=== PATIENT | female | born 1945 | race Hispanic/Latino ===

== ENCOUNTER 2016-11-17 12:49 | Emergency (ER) | payer MEDICARE, OTHER ==
[2016-11-17 13:01] VITALS: BP 131/68; PULSE 74; RESP 20; TEMP 97.9; O2SAT 99
[2016-11-17] MEDS ORDERED: Oxycodone/Acetaminophen 5/325 mg Tab ONE (13:11)
[2016-11-17] MEDS ORDERED: Oxycodone/Acetaminophen 5/325 mg Tab PO STA (13:16)
--- NOTE | 2016-11-17 13:19 | ED PDOC ---
Lower Extremity Pain/Injury Time Seen by Provider: 11/17/16 13:04 Chief Complaint (Nursing): Lower Extremity Problem/Injury Chief Complaint (Provider): Left Knee Pain History Per: Patient History/Exam Limitations: no limitations Onset/Duration Of Symptoms: Days (x4) Current Symptoms Are (Timing): Still Present Severity: Moderate Additional Complaint(s): Kathy Whiting is a 71 year old female, with a past medical history inclusive hypercholesterolemia, chronic knee pain and previous b/l knee surgery, who presents to the ED on 11/17/16 for the evaluation of a moderate amount of atraumatic left knee pain that she has experienced x4 days. Pain, reportedly worse with movement and ambulation, is diffusely localized to the anterior/ posterior knee as well as the gold, calf and hamstrings. Denies chest pain, shortness of breath, dizziness/lightheadedness or extremity swelling. No recent travel. Has medicated with Advil every 6 hours without relief. Of note, patient usually takes Tylenol #3 at home for severe pain, but states that she has run out of this prescription. She also reports taking aspirin on a daily basis. PMD: Max Milian Past Medical History Reviewed: Historical Data, Nursing Documentation, Vital Signs Vital Signs: Last Vital Signs Temp 97.9 F 11/17/16 12:57 Pulse 74 11/17/16 12:57 Resp 20 11/17/16 12:57 BP 131/68 11/17/16 12:57 Pulse Ox 99 11/17/16 12:57 - Medical History PMH: Depression, Hypercholesterolemia Denies: Diabetes, HIV, Chronic Kidney Disease Comment Only: HTN (pt denies) - Surgical History Other surgeries: b/l knee surgery - Family History Family History: States: Unknown Family Hx - Living Arrangements Living Arrangements: With Family - Immunization History Hx Tetanus Toxoid Vaccination: No Hx Influenza Vaccination: No Hx Pneumococcal Vaccination: No - Home Medications Home Medications: Ambulatory Orders Medication Instructions Recorded Citalopram Hydrobromide [Celexa] 10 mg PO DAILY 10/09/14 Rosuvastatin Calcium [Crestor] 5 mg PO HS 10/09/14 Zolpidem Tartrate [Ambien] 10 mg PO HS PRN 10/09/14 Ondansetron ODT [Zofran ODT] 4 mg PO Q8 PRN #12 odt 02/23/15 QUEtiapine [SEROquel] 25 mg PO HS 02/23/15 Rivastigmine 9.5 mg/24 hr [Exelon 1 patch TOP QAM 02/23/15 9.5 mg/24 hr Patch] Aspirin [Aspirin Chewable] 81 mg PO DAILY 06/16/16 Glucosamine HCl 500 mg PO DAILY 06/16/16 [place]-3 Fatty Acids [Fish Oil] 300 mg PO DAILY 06/16/16 oxyCODONE/Acetaminophen [Percocet 1 ea PO Q6H PRN #15 tab 11/17/16 5/325 mg Tab] - Allergies Allergies/Adverse Reactions: Allergies Allergy/AdvReac Type Severity Reaction Status Date / Time No Known Allergies Allergy Verified 12/06/15 11:45 Review of Systems Cardiovascular: Negative for: Chest Pain, Edema, Light Headedness Respiratory: Negative for: Shortness of Breath Musculoskeletal: Positive for: Leg Pain (diffuse (anterior/posterior knee, gold , calf, hamstrings)) Neurological: Negative for: Dizziness Physical Exam - Reviewed Nursing Documentation Reviewed: Yes Vital Signs Reviewed: Yes - Physical Exam Appears: Positive for: Non-toxic, No Acute Distress Skin: Positive for: Normal Color, Warm, Dry Cardiovascular/Chest: Positive for: Regular Rate, Rhythm. Negative for: Murmur Respiratory: Positive for: Normal Breath Sounds. Negative for: Respiratory Distress Pulses-Dorsalis Pedis (L): 2+ Extremity: Positive for: Calf Tenderness (left). Negative for: Normal ROM ( decreased ROM of left knee secondary to pain), Tenderness (left knee is nontender to palpation), Deformity, Swelling Neurologic/Psych: Positive for: Alert, Oriented. Negative for: Motor/Sensory Deficits - ECG O2 Sat by Pulse Oximetry: 99 (RA) Pulse Ox Interpretation: Normal Medical Decision Making Medical Decision Makin:04 Initial Impression: left knee/leg/calf pain; will r/o bony abnormality as well as DVT Initial Plan: * Duplex LE Vein, Left * XR Left Knee (3 Views) * Percocet 1 tab PO * Reevaluation Pt reports feeling better on re-evaluation. Discussed (-) DVT and normal knee x- ray. (+) jimenez's cyst. Pt states she will f/u with her orthopedic when he returns from vacation. Scribe Attestation: Documented by Roxann Martin, acting as a scribe for Sherry Gonzalez PA-C. Provider Scribe Attestation: All medical record entries made by the Scribe were at my direction and personally dictated by me. I have reviewed the chart and agree that the record accurately reflects my personal performance of the history, physical exam, medical decision making, and the department course for this patient. I have also personally directed, reviewed, and agree with the discharge instructions and disposition. Disposition - Clinical Impression Clinical Impression: Jimenez's cyst of knee - Patient ED Disposition Is Patient to be Admitted: No Counseled Patient/Family Regarding: Diagnosis, Need For Followup, Rx Given - Disposition Referrals: [facility] [Outside] Disposition: Routine/Home Disposition Time: 15:08 Condition: GOOD Prescriptions: oxyCODONE/Acetaminophen [Percocet 5/325 mg Tab] 1 ea PO Q6H PRN #15 tab PRN Reason: Pain, Severe (8-10) Instructions: Jimenez's Cyst (ED) Print Language: COMORAN
--- NOTE | 2016-11-17 14:06 | US ---
Left lower extremity ultrasound. Indication: Left calf pain Technique: Duplex ultrasound evaluation of the left lower extremity Comparison: None available Findings: There is normal flow, compressibility, and augmentation of the left common femoral, femoral, and popliteal veins. The steer tibial vein appears patent. 2.6 x 1.5 x 2.4 cm rounded anechoic posterior fossa collection compatible with a Jimenez's cyst. Impression: No evidence of deep venous thrombosis in the left lower extremity. 2.6 x 1.5 x 2.4 cm Jimenez's cyst.
--- NOTE | 2016-11-17 14:36 | RAD ---
PROCEDURE: Left Knee Radiographs. HISTORY: Pain. COMPARISON: None. FINDINGS: BONES: There is no acute fracture or bone destruction. Bone mineralization is normal. There is no evidence of loosening or hardware complications. JOINTS: Status post total cemented knee arthroplasty. JOINT EFFUSION: There is a small suprapatellar joint effusion. OTHER FINDINGS: None. IMPRESSION: Status post total cemented knee arthroplasty, no evidence of hardware complications.
== END 2016-11-17 15:17 | disposition home or self-care (01) ==
LOC: H.ER 12:49
DX: M71.20 Synovial cyst of popliteal space [Baker], unspecified knee (principal)

== ENCOUNTER 2018-01-26 13:27 | Emergency (ER) | payer MEDICARE, OTHER ==
[2018-01-26 13:29] VITALS: BP 148/83; PULSE 78; RESP 16; TEMP 98.4; O2SAT 97
[2018-01-26 13:30] VITALS: BMI 26.5
[2018-01-26] MEDS ORDERED: Oxycodone/Acetaminophen 5/325 mg Tab PO STA (13:50)
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
[2018-01-26] MEDS ORDERED: Oxycodone/Acetaminophen 5/325 mg Tab ONE (13:59)
--- NOTE | 2018-01-26 14:26 | RAD ---
PROCEDURE: Radiographs of the right humerus. HISTORY: right arm pain, s/p fall COMPARISON: None. FINDINGS: BONES: No acute fracture. SOFT TISSUES: Normal. OTHER FINDINGS: Glenohumeral and acromioclavicular joint degenerative changes. IMPRESSION: No demonstrated fracture or dislocation. Degenerative change.
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
== END 2018-01-26 15:49 | disposition home or self-care (01) ==
LOC: H.ER 13:27
DX: S09.90XA Unspecified injury of head, initial encounter (principal); S40.021A Contusion of right upper arm, initial encounter; V03.10XA Pedestrian on foot injured in collision with car, pick-up truck or van in traffic accident, initial encounter; Y92.410 Unspecified street and highway as the place of occurrence of the external cause; E78.00 Pure hypercholesterolemia, unspecified; F32.9 Major depressive disorder, single episode, unspecified; I10 Essential (primary) hypertension; Z79.82 Long term (current) use of aspirin